=== PATIENT | female | born 1945 | race Hispanic/Latino ===

== ENCOUNTER 2018-01-01 09:21 | Day surgery (SDC) | payer MEDICARE, BC ==
[2018-01-01] MEDS ORDERED: Lactated Ringer's 500 ML IV ONE (12:04)
[2018-01-01] MEDS ORDERED: Propofol 10 mg/ml Inj (20 ML) ONE (12:07)
[2018-01-01 13:39] VITALS: BP 141/81; PULSE 62; RESP 16; TEMP 97.9; O2SAT 99
== END 2018-01-01 14:05 | disposition home or self-care (01) ==
LOC: C.ENDO 09:21
PROVIDERS: ATTEND Internal Medicine Gastroenterology
DX: K62.5 Hemorrhage of anus and rectum (principal); K63.5 Polyp of colon; K57.30 Diverticulosis of large intestine without perforation or abscess without bleeding; K64.2 Third degree hemorrhoids

== ENCOUNTER 2018-04-03 22:58 | Emergency (ER) | payer MEDICARE, BC ==
[2018-04-03 23:07] VITALS: BP 144/89; PULSE 89; RESP 14; TEMP 98.9; O2SAT 98
--- NOTE | 2018-04-04 00:48 | C.PDOC ---
History Of Present Illness 73 year old female presents to the ER after she tripped, fell, and hit her right elbow on the floor and sustained abrasions to the bilateral knees. Denies LOC or head injury. - HPI Time Seen by Provider: 04/03/18 23:18 Chief Complaint (Nursing): Trauma History Per: Patient History/Exam Limitations: no limitations Onset/Duration Of Symptoms: Hrs Injury Occurred (Timing): Just Before Arrival Location Of Injury: Right: Elbow, Knee, Left: Knee Recent travel outside of the [place]: No Past Medical History Reviewed: Historical Data, Nursing Documentation, Vital Signs Vital Signs: Last Vital Signs Temp 98.9 F 04/03/18 23:03 Pulse 89 04/03/18 23:03 Resp 14 04/03/18 23:03 BP 144/89 04/03/18 23:03 Pulse Ox 98 04/04/18 00:58 - Medical History PMH: No Chronic Diseases Surgical History: No Surg Hx Family History: States: Unknown Family Hx - Social History Hx Alcohol Use: No Hx Substance Use: No - Immunization History Hx Tetanus Toxoid Vaccination: Yes Hx Influenza Vaccination: Yes Hx Pneumococcal Vaccination: Yes Review Of Systems Musculoskeletal: Positive for: Arm Pain, Leg Pain Skin: Negative for: Other (LOC) Neurological: Negative for: Weakness, Numbness Physical Exam - Physical Exam Appears: Non-toxic Skin: Warm, Dry Head: Atraumatic, Normacephalic Eye(s): bilateral: Normal Inspection Back: No Vertebral Tenderness, No Paraspinal Tenderness Extremity: Capillary Refill (<2 seconds), No Deformity, No Swelling, Other ( Tenderness to medial right elbow anteriorly, ROM of elbow causes pain. No olecranon tenderness. Superficial abrasions to bilateral knees, no tenderness.) Pulses: Left Dorsalis Pedis: Normal, Right Dorsalis Pedis: Normal Neurological/Psych: Oriented x3, Normal Speech, Normal Motor, Normal Sensation Gait: Steady ED Course And Treatment O2 Sat by Pulse Oximetry: 98 (Room air) Pulse Ox Interpretation: Normal - Other Rad Right Elbow x-ray X-Ray: Interpreted by Me, Viewed By Me Interpretation: Small avulsion fracture of the proximal ulna. Progress Note: Motrin administered for pain with relief. Right elbow x-ry ordered, results showed positive fracture. Patient placed in posterior splint for support and instructed to follow up with ortho for further evaluation. Return precautions given. Disposition Counseled Patient/Family Regarding: Diagnosis, Need For Followup, Rx Given - Disposition Referrals: Jules Swanson MD [Staff Provider] - Disposition: HOME/ ROUTINE Disposition Time: 00:43 Condition: STABLE Additional Instructions: Take ibuprofen for pain Keep splint for support until seen by orthopedist Return to ER if worse Instructions: Elbow Fracture (DC), Avulsion Fracture (DC) Forms: [employer] (Greenlandic) - Clinical Impression Clinical Impression: Elbow fracture, right, Avulsion fracture - PA / LINE ASSIGNER / Resident Statement MD/DO has reviewed & agrees with the documentation as recorded. - Scribe Statement The provider has reviewed the documentation as recorded by the Scribe Yariel Arguelles All medical record entries made by the Deepakibantoine were at my direction and personally dictated by me. I have reviewed the chart and agree that the record accurately reflects my personal performance of the history, physical exam, medical decision making, and the department course for this patient. I have also personally directed, reviewed, and agree with the discharge instructions and disposition.
--- NOTE | 2018-04-04 14:02 | RAD ---
PROCEDURE: Radiographs of the right elbow. HISTORY: fell, hurt Right elbow COMPARISON: No prior. FINDINGS: BONES: Report JOINTS: Mild degenerative osteoarthritis with what appears represent a few small intra-articular loose bodies between the radius and capitellum. . SOFT TISSUES: Normal. JOINT EFFUSION: None. OTHER FINDINGS: None. IMPRESSION: No evidence of acute displaced fracture nor dislocation. Mild degenerative osteoarthritis.
== END 2018-04-04 01:01 | disposition home or self-care (01) ==
LOC: C.ER 22:58
DX: S52.001A Unspecified fracture of upper end of right ulna, initial encounter for closed fracture (principal); W01.0XXA Fall on same level from slipping, tripping and stumbling without subsequent striking against object, initial encounter